=== PATIENT | male | born 1955 | race Caucasian/White ===

== ENCOUNTER 2016-09-15 13:07 | Day surgery (SDC) | payer OTHER ==
[~2016-09-15] VITALS: Ht 167.6 cm; Wt 104.5 kg
[~2016-09-15 13:07] MED LIST: ALBU18HF INH; ALLO300T2 PO; CLOP75TA3 PO; DOCU250C2 PO; DOXE100C4 PO; FLUO20TA28 PO; FUR20 PO; GABA-502 PO; HYDR-3740 PO; HYDR-656 PO; LORA10CA PO; Lactated Ringer's 1,000 ML IV ONE; METO25TA6 PO; MS30TCR PO; POTA10CA42 PO; RANI150C4 PO; SIMV80TA4 PO; TIOT18CA3 IH; TRIA1CAP5 PO
[2016-09-15 14:03] VITALS: BP 112/76; PULSE 74; RESP 16; O2SAT 94
[2016-09-15] MEDS ORDERED: LEVO150T5 PO (14:03)
[2016-09-15] MEDS ORDERED: LANS30CA PO (14:03)
== END 2016-09-15 23:59 | disposition home or self-care (01) ==
LOC: END 13:07
PROVIDERS: ATTEND Internal Medicine Gastroenterology
DX: K31.89 Other diseases of stomach and duodenum (principal); K22.70 Barrett's esophagus without dysplasia; Z53.8 Procedure and treatment not carried out for other reasons